=== PATIENT | male | born 1950 | race African-American/Black ===

== ENCOUNTER 2019-10-21 12:34 | Inpatient (IN) | payer MEDICAID, OTHER ==
[~2019-10-21] VITALS: Ht 171.4 cm; Wt 94.4 kg
[~2019-10-21 12:34] MED LIST: ASPI-1158; HCTZ; LIPITOR; LOPRESSOR; PROAIR; TERA5CAP
[2019-10-21] MEDS ORDERED: ALBUTEROL (0.083%) 2.5MG/3ML NEB HHN STA (13:18)
[2019-10-21] MEDS ORDERED: IPRATROPIUM BROMIDE (0.02%) 0.5MG/2.5ML NEB HHN STA (13:18)
[2019-10-21] MEDS ORDERED: METHYLPREDNISOLONE SOD SUCC 125 MG/2 ML VIAL IV STA (13:18)
[2019-10-21] MEDS ORDERED: ASPIRIN 81MG TABLET PO ONE (13:30)
[2019-10-21] MEDS ORDERED: MAGNESIUM 2 G PREMIX 50 ML IV ONE (13:30)
[2019-10-21 14:06] LABS: HEMATOCRIT. 39.3 % (42.0-52.0); HEMOGLOBIN. 12.7 g/dL (14.0-18.0); MEAN CORPUSCULAR VOLUME 86.8 fL (80.0-94.0); MEAN PLATELET VOLUME 9.7 fl (7.4-10.4); PLATELET 229 x1000/uL (130-400); RED BLOOD CELL COUNT 4.52 mill/uL (4.7-6.1); RED CELL DISTRIBUTION WIDTH 15.9 % (11.6-14.6)
[2019-10-21 14:09] LABS: CHLORIDE 106 mEq/L (98-107)
[2019-10-21 14:12] LABS: PARTIAL THROMBOPLASTIN TIME 25.9 sec (23.4-31.0); PROTHROMBIN TIME 10.7 sec (9.6-11.0)
[2019-10-21 14:42] LABS: PLATELET ESTIMATE NORMAL
[2019-10-21] MEDS ORDERED: HYDRALAZINE 20MG/ML VIAL IV ONE (15:45)
[2019-10-22] MEDS ORDERED: DIPHENHYDRAMINE 50MG/ML VIAL IV PRN (10:45)
[2019-10-22] MEDS ORDERED: ACETAMINOPHEN 650MG SUPP PR PRN (10:45)
[2019-10-22] MEDS ORDERED: HYDROCODONE/ACETAMINOPHEN 5/325MG TABLET PO PRN (10:45)
[2019-10-22] MEDS ORDERED: ONDANSETRON HCL 4MG/2ML INJ IV PRN (10:45)
[2019-10-22] MEDS ORDERED: NA PHOS,M-B/NA PHOS,DI-BA ENEMA 118ML PR PRN (10:45)
[2019-10-22] MEDS ORDERED: GUAIFENESIN 200MG/10ML SUGAR FREE UDC PO PRN (10:45)
[2019-10-22] MEDS ORDERED: DOCUSATE SODIUM 100MG CAPSULE PO PRN (10:45)
[2019-10-22] MEDS ORDERED: CLONIDINE 0.1MG TABLET PO PRN (10:45)
[2019-10-22] MEDS ORDERED: MAGNESIUM/ALUMINUM HYDROXIDE/SIMETHICONE 30ML UDC PO PRN (10:45)
[2019-10-22] MEDS ORDERED: ACETAMINOPHEN 650MG/20.3ML UDC GT PRN (10:45)
[2019-10-22] MEDS ORDERED: IPRATROPIUM/ALBUTEROL 0.5-3(2.5)MG/3ML NEB NEB PRN (10:45)
[2019-10-22] MEDS ORDERED: LORAZEPAM 0.5MG TABLET PO PRN (10:45)
[2019-10-22 11:12] LABS: BG BASE EXCESS -0.8 mmol/L (-2.0-2.0); BG CARBOXYHEMOGLOBIN 1.2 % (0.5-1.5); BG DEOXYHEMOGLOBIN 3.4 % (0.0-5.0); BG FRACTION INSPIRED OXYGEN 21; BG HCO3 ACT 23.6 mmol/L (22.0-26.0); BG OXYGEN SATURATION 96.6 % (92.0-98.5); BG OXYHEMOGLOBIN 95.4 % (94.0-97.0); BG PCO2 38.3 mmHg (35.0-45.0); BG PH 7.408 (7.350-7.450); BG PO2 85.5 mmHg (75.0-100.0); BG SAMPLE SITE RIGHT RADIAL; BG TOTAL HEMOGLOBIN 13.6 g/dL (12.0-18.0); BG VENT MODE ROOM AIR
[2019-10-22 12:00] VITALS: BP_SYST 152; BP_SYST 153; BP_DIAS 93
[2019-10-22] MEDS ORDERED: NAPR-681 PO (13:09)
[2019-10-22] MEDS ORDERED: FLOV44 INH (13:09)
[2019-10-22] MEDS ORDERED: TAMS-11 PO (13:09)
[2019-10-22] MEDS ORDERED: FINA5TAB11 PO (13:09)
[2019-10-22] MEDS ORDERED: IPRA4AER INH (13:09)
[2019-10-22] MEDS ORDERED: METF-414 PO (13:09)
[2019-10-22] MEDS ORDERED: BENA1TAB19 PO (13:09)
[2019-10-22] MEDS ORDERED: ACET-2708 PO (13:09)
[2019-10-22] MEDS ORDERED: ATOR40TA70 PO (13:09)
[2019-10-22] MEDS: METHYLPREDNISOLONE SOD SUCC 40 MG/ML VIAL IV SCH ×2 (14:15→22:17)
[2019-10-22 16:00] VITALS: BP 159/98
[2019-10-22] MEDS ORDERED: LEVOFLOXACIN 500MG PREMIX 100 ML IV SCH (16:00)
[2019-10-22 16:56] LABS: BASOPHILS % 0.2 % (0.0-2.0); EOSINOPHILS % 0.4 % (0.0-5.0); HEMATOCRIT. 42.6 % (42.0-52.0); HEMOGLOBIN. 13.8 g/dL (14.0-18.0); LYMPHOCYTES % 7.2 % (20.0-50.0); MEAN CORPUSCULAR VOLUME 86.8 fL (80.0-94.0); MEAN PLATELET VOLUME 9.9 fl (7.4-10.4); MONOCYTES % 4.8 % (2.0-8.0); NEUTROPHILS % 87.4 % (40.0-76.0); PLATELET 250 x1000/uL (130-400); RED BLOOD CELL COUNT 4.91 mill/uL (4.7-6.1); RED CELL DISTRIBUTION WIDTH 15.4 % (11.6-14.6)
[2019-10-22 17:20] LABS: CHLORIDE 101 mEq/L (98-107)
[2019-10-22 17:29] LABS: CREATINE KINASE 126 IU/L (39-308)
[2019-10-22 17:30] LABS: CREATINE KINASE MB FRACTION 2.8 ng/mL (0.5-3.6)
[2019-10-22] MEDS: METFORMIN HCL 500MG TABLET PO SCH (18:32)
[2019-10-22 19:45] LABS: CLARITY URINE CLEAR (CLEAR); COLOR URINE YELLOW (YELLOW); KETONES URINE TRACE (NEGATIVE); LEUKOCYTE ESTERASE URINE 2+ (NEGATIVE); NITRITE URINE NEGATIVE (NEGATIVE); OCCULT BLOOD URINE NEGATIVE (NEGATIVE); PROTEIN URINE NEGATIVE (NEGATIVE); SPECIFIC GRAVITY URINE 1.026 (1.005-1.030); UROBILINOGEN URINE 0.2 E.U./dL (0.2-1.0)
[2019-10-22 20:00] VITALS: BP 146/82
[2019-10-22 20:13] LABS: *AMPHETAMINES SCREEN URINE NEGATIVE (NEGATIVE); *BARBITURATES SCREEN URINE NEGATIVE (NEGATIVE); *BENZODIAZEPINES SCREEN URINE NEGATIVE (NEGATIVE); *COCAINE SCREEN URINE PRESUMTIVE POSITIVE (NEGATIVE)
[2019-10-22 20:14] LABS: CANNABINOID URINE SCREEN NEGATIVE (NEGATIVE); METHADONE URINE SCREEN NEGATIVE (NEGATIVE); OPIATES URINE SCREEN NEGATIVE (NEGATIVE); PHENCYCLIDINE URINE SCREEN NEGATIVE (NEGATIVE)
[2019-10-22] MEDS ORDERED: FAMOTIDINE 20MG TABLET PO SCH (21:00)
[2019-10-22] MEDS ORDERED: ATORVASTATIN CALCIUM 40MG TABLET PO SCH (21:00)
[2019-10-22] MEDS: HYDRALAZINE HCL 25MG TABLET PO SCH (21:04)
[2019-10-22] MEDS: ENOXAPARIN 30MG/0.3ML SYR SUBCUT SCH (21:04)
[2019-10-23] VITALS: BP 133/82
[2019-10-23 00:24] LABS: CREATINE KINASE 109 IU/L (39-308)
[2019-10-23 00:25] LABS: CREATINE KINASE MB FRACTION 2.9 ng/mL (0.5-3.6)
[2019-10-23] MEDS: BUDESONIDE 0.5MG/2ML NEB HHN SCH ×2 (01:32→11:03)
[2019-10-23] MEDS: IPRATROPIUM/ALBUTEROL 0.5-3(2.5)MG/3ML NEB NEB SCH ×4 (01:32→14:58)
[2019-10-23 04:00] VITALS: BP 151/104
[2019-10-23] MEDS: METHYLPREDNISOLONE SOD SUCC 40 MG/ML VIAL IV SCH (05:17)
[2019-10-23 07:17] LABS: HEMATOCRIT. 40.3 % (42.0-52.0); HEMOGLOBIN. 13.2 g/dL (14.0-18.0); MEAN CORPUSCULAR HEMOGLOBIN 28.3 pg (28.0-32.0); MEAN CORPUSCULAR VOLUME 86.6 fL (80.0-94.0); MEAN PLATELET VOLUME 10.2 fl (7.4-10.4); PLATELET 262 x1000/uL (130-400); RED BLOOD CELL COUNT 4.65 mill/uL (4.7-6.1); RED CELL DISTRIBUTION WIDTH 15.5 % (11.6-14.6)
[2019-10-23 07:34] LABS: CHLORIDE 102 mEq/L (98-107)
[2019-10-23 07:48] LABS: HDL CHOLESTEROL 53 mg/dL (40-59)
[2019-10-23 07:49] LABS: T4 FREE 1.08 ng/dL (0.76-1.46)
[2019-10-23 07:56] LABS: LDL CHOLESTEROL 104 mg/dL (5-100)
[2019-10-23 08:00] VITALS: BP 167/115
[2019-10-23] MEDS: METFORMIN HCL 500MG TABLET PO SCH (08:43)
[2019-10-23] MEDS: HYDRALAZINE HCL 25MG TABLET PO SCH (08:44)
[2019-10-23] MEDS: ENOXAPARIN 30MG/0.3ML SYR SUBCUT SCH (08:46)
[2019-10-23] MEDS ORDERED: FINASTERIDE 5MG TABLET PO SCH (09:00)
[2019-10-23] MEDS ORDERED: ASPIRIN 81MG EC TABLET PO SCH (09:00)
[2019-10-23] MEDS ORDERED: TAMSULOSIN HCL 0.4MG SR CAPSULE PO SCH (09:00)
[2019-10-23] MEDS ORDERED: DEXTROSE 50% WATER 50ML SYRINGE IV PRN (11:00)
[2019-10-23 12:00] VITALS: BP 150/90
[2019-10-23] MEDS ORDERED: LOSARTAN POTASSIUM 25 MG TABLET PO SCH (12:30)
[2019-10-23] MEDS ORDERED: BLOOD SUGAR DIAGNOSTIC STRIP TEST SCH (12:40)
[2019-10-23] MEDS ORDERED: INSULIN LISPRO 100 UNITS/ML SUBCUT SCH (13:10)
[2019-10-23 13:52] LABS: PLATELET ESTIMATE NORMAL
[2019-10-23] MEDS ORDERED: ASPI-1497 MT (15:05)
[2019-10-23] MEDS ORDERED: FAMO-135 MT (15:05)
[2019-10-23] MEDS ORDERED: LOSA25TA3 MT (15:05)
[2019-10-23] MEDS ORDERED: P20 PO (15:05)
[2019-10-23] MEDS ORDERED: IPRA3AMP9 NEB (15:05)
[2019-10-23] MEDS ORDERED: LEVO500T2 MT (15:08)
[2019-10-23] MEDS ORDERED: AMLO5TAB4 MT (15:11)
[2019-10-23] MEDS ORDERED: AMLODIPINE 5MG TABLET PO NR (15:15)
[2019-10-23] MEDS ORDERED: LEVOFLOXACIN 500MG TABLET PO SCH (16:00)
[2019-10-23 16:17] VITALS: BP 149/93
[2019-10-23 16:37] VITALS: BP 149/83
[2019-10-23] MEDS ORDERED: METHYLPREDNISOLONE SOD SUCC 40 MG/ML VIAL IV SCH (20:00)
== END 2019-10-23 17:15 | disposition home or self-care (01) | DRG 917 ==
LOC: ER 12:34 → EDBEDREQ 13:22 → CANBEDREQ 16:39 → 7WST 21:06 → CANRESERV 10-22 07:35 → ENRESERV 10-22 07:35 → SUPCPDRO 10-22 13:10
PROVIDERS: ADMIT Internal Medicine; ATTEND Internal Medicine
DX: T40.5X1A Poisoning by cocaine, accidental (unintentional), initial encounter (principal); I50.23 Acute on chronic systolic (congestive) heart failure; I69.354 Hemiplegia and hemiparesis following cerebral infarction affecting left non-dominant side; J68.0 Bronchitis and pneumonitis due to chemicals, gases, fumes and vapors; I42.9 Cardiomyopathy, unspecified; I11.0 Hypertensive heart disease with heart failure; R07.89 Other chest pain; D64.9 Anemia, unspecified; I49.3 Ventricular premature depolarization; E11.65 Type 2 diabetes mellitus with hyperglycemia; E78.5 Hyperlipidemia, unspecified; F14.90 Cocaine use, unspecified, uncomplicated; N40.0 Benign prostatic hyperplasia without lower urinary tract symptoms; D72.1 Eosinophilia; I27.20 Pulmonary hypertension, unspecified; Z60.2 Problems related to living alone; I34.0 Nonrheumatic mitral (valve) insufficiency; Y92.89 Other specified places as the place of occurrence of the external cause; Z79.82 Long term (current) use of aspirin; Z79.899 Other long term (current) drug therapy; Z87.891 Personal history of nicotine dependence
CPT/HCPCS: 36415; 36600; 71045; 80048; 80053; 80061; 80305; 81003; 82375; 82550; 82553; 82805; 82962; 83036; 83880; 84153; 84439; 84443; 84484; 85025; 87804; 93005; 93306; 93970; 94618; 94640; 97162; 99285; J0360; J1650; J1956; J2920; J2930; J3475; J7626; G0103

== ENCOUNTER 2020-02-09 03:09 | Emergency (ER) | payer OTHER, MEDICAID ==
[~2020-02-09] VITALS: Ht 182.9 cm; Wt 104.0 kg
[~2020-02-09 03:09] MED LIST changes: +ACET-2708 PO; +AMLO5TAB4 MT; -ASPI-1158; +ASPI-1497 MT; +ATOR40TA70 PO; +FAMO-135 MT; +FINA5TAB11 PO; +FLOV44 INH; -HCTZ; +IPRA3AMP9 NEB; +IPRA4AER INH; +LEVO500T2 MT; -LIPITOR; -LOPRESSOR; +LOSA25TA3 MT; +METF-414 PO; +NAPR-681 PO; +P20 PO; -PROAIR; +TAMS-11 PO; -TERA5CAP
[2020-02-09] MEDS ORDERED: ALBUTEROL (0.083%) 2.5MG/3ML NEB HHN SCH (03:30)
[2020-02-09] MEDS ORDERED: IPRATROPIUM BROMIDE (0.02%) 0.5MG/2.5ML NEB HHN STA (03:30)
[2020-02-09] MEDS ORDERED: MAGNESIUM 2 G PREMIX 50 ML IV ONE (03:30)
[2020-02-09] MEDS ORDERED: METHYLPREDNISOLONE SOD SUCC 125 MG/2 ML VIAL IV STA (03:30)
[2020-02-09 03:46] LABS: BASOPHILS % 0.7 % (0.0-2.0); EOSINOPHILS % 0.3 % (0.0-5.0); HEMATOCRIT. 39.5 % (42.0-52.0); HEMOGLOBIN. 12.9 g/dL (14.0-18.0); LYMPHOCYTES % 13.5 % (20.0-50.0); MEAN CORPUSCULAR HEMOGLOBIN 28.6 pg (28.0-32.0); MEAN CORPUSCULAR VOLUME 87.5 fL (80.0-94.0); MEAN PLATELET VOLUME 9.6 fl (7.4-10.4); MONOCYTES % 10.2 % (2.0-8.0); NEUTROPHILS % 75.3 % (40.0-76.0); PLATELET 203 x1000/uL (130-400); RED BLOOD CELL COUNT 4.51 mill/uL (4.7-6.1); RED CELL DISTRIBUTION WIDTH 16.5 % (11.6-14.6)
[2020-02-09 03:53] LABS: CHLORIDE 114 mEq/L (98-107)
[2020-02-09 03:57] LABS: ETHANOL BLOOD < 10 mg/dL
[2020-02-09] MEDS ORDERED: ASPIRIN 325MG EC TABLET PO NR (04:15)
[2020-02-09] MEDS ORDERED: FUROSEMIDE 40MG/4ML VIAL IVP NR (04:15)
[2020-02-09 05:35] VITALS: BP 169/113
== END 2020-02-09 05:35 | disposition left against medical advice (07) ==
LOC: ER 03:09 → CANBEDREQ 08:08
DX: I11.0 Hypertensive heart disease with heart failure (principal); I50.9 Heart failure, unspecified; J44.9 Chronic obstructive pulmonary disease, unspecified; I24.9 Acute ischemic heart disease, unspecified; Z86.73 Personal history of transient ischemic attack (TIA), and cerebral infarction without residual deficits; F14.10 Cocaine abuse, uncomplicated; F12.10 Cannabis abuse, uncomplicated; Z79.899 Other long term (current) drug therapy
CPT/HCPCS: 36415; 71045; 80053; 80320; 83880; 84484; 85025; 93005; 94640; 96365; 96375; 99285; J1940; J2930; J3475; G0480

== ENCOUNTER 2020-05-18 19:38 | Emergency (ER) | payer OTHER, MEDICAID ==
[~2020-05-18] VITALS: Ht 170.2 cm; Wt 105.0 kg
[2020-05-18] MEDS ORDERED: IPRATROPIUM BROMIDE (0.02%) 0.5MG/2.5ML NEB HHN STA (19:42)
[2020-05-18] MEDS ORDERED: ALBUTEROL (0.083%) 2.5MG/3ML NEB HHN STA (19:42)
[2020-05-18] MEDS ORDERED: METHYLPREDNISOLONE SOD SUCC 125 MG/2 ML VIAL IV STA (19:42)
[2020-05-18] MEDS ORDERED: ONDANSETRON HCL 4MG/2ML INJ IV STA (19:42)
[2020-05-18] MEDS ORDERED: ASPIRIN 81MG TABLET PO ONE (19:45)
[2020-05-18 20:18] LABS: BASOPHILS % 1.2 % (0.0-2.0); EOSINOPHILS % 7.9 % (0.0-5.0); HEMATOCRIT. 39.9 % (42.0-52.0); LYMPHOCYTES % 37.3 % (20.0-50.0); MEAN CORPUSCULAR HEMOGLOBIN 27.7 pg (28.0-32.0); MEAN CORPUSCULAR VOLUME 84.8 fL (80.0-94.0); MEAN PLATELET VOLUME 10.1 fl (7.4-10.4); NEUTROPHILS % 42.6 % (40.0-76.0); PLATELET 214 x1000/uL (130-400); RED BLOOD CELL COUNT 4.71 mill/uL (4.7-6.1); RED CELL DISTRIBUTION WIDTH 16.8 % (11.6-14.6)
[2020-05-18 20:20] LABS: CHLORIDE 101 mEq/L (98-107)
[2020-05-18 20:25] LABS: PARTIAL THROMBOPLASTIN TIME 24.4 sec (23.4-31.0); PROTHROMBIN TIME 10.3 sec (9.6-11.0)
[2020-05-18] MEDS ORDERED: SODIUM CHLORIDE 0.9% 500 ML IV ONE (23:30)
[2020-05-18 23:42] LABS: BG BASE EXCESS -0.3 mmol/L (-2.0-2.0); BG CARBOXYHEMOGLOBIN 0.7 % (0.5-1.5); BG DEOXYHEMOGLOBIN 9.4 % (0.0-5.0); BG FRACTION INSPIRED OXYGEN 21; BG HCO3 ACT 26.4 mmol/L (22.0-26.0); BG METHEMOGLOBIN 0.4 % (0.0-1.5); BG OXYGEN SATURATION 90.5 % (92.0-98.5); BG OXYHEMOGLOBIN 89.5 % (94.0-97.0); BG PCO2 51.2 mmHg (35.0-45.0); BG PO2 62.6 mmHg (75.0-100.0); BG SAMPLE SITE RIGHT RADIAL; BG TOTAL HEMOGLOBIN 13.9 g/dL (12.0-18.0); BG VENT MODE ROOM AIR
[2020-05-19 02:54] VITALS: BP 116/63
[2020-05-19] MEDS ORDERED: ALBUTEROL (0.083%) 2.5MG/3ML NEB HHN STA (04:14)
[2020-05-19] MEDS ORDERED: IPRATROPIUM BROMIDE (0.02%) 0.5MG/2.5ML NEB HHN STA (04:14)
== END 2020-05-19 03:22 | disposition short-term general hospital (02) ==
LOC: ER 19:38 → CANBEDREQ 05-19 02:49 → ER 05-19 03:22
DX: J44.1 Chronic obstructive pulmonary disease with (acute) exacerbation (principal); J96.90 Respiratory failure, unspecified, unspecified whether with hypoxia or hypercapnia; I10 Essential (primary) hypertension; Z86.73 Personal history of transient ischemic attack (TIA), and cerebral infarction without residual deficits; F14.10 Cocaine abuse, uncomplicated; F12.10 Cannabis abuse, uncomplicated; Z79.899 Other long term (current) drug therapy
CPT/HCPCS: 36415; 36600; 71045; 80053; 82375; 82805; 83880; 84484; 85025; 85610; 85730; 87635; 93005; 96361; 96374; 96375; 99291; J2405; J2930